=== PATIENT | female | born 2000 | race Caucasian/White ===

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

== ENCOUNTER 2021-12-03 19:18 | Inpatient (IN) | payer OTHER ==
[2021-12-03] MEDS ORDERED: Nalbuphine HCl 10 MG/ 1ML Amp IVPUSH PRN (19:29)
[2021-12-03] MEDS ORDERED: Famotidine 20 MG Tab PO PRN (19:29)
[2021-12-03] MEDS ORDERED: Oxytocin/Lactated Ringers 10 UNIT/1,000 ML BAG IV SCH ×2 (19:30)
[2021-12-03] MEDS: Misoprostol 25 MCG (1/4 of 100 MCG) Tab VAG SCH (20:12)
[2021-12-04] MEDS ORDERED: Bupivacaine 0.25% 10 ML SDV ONE
[2021-12-04] MEDS: Lactated Ringers 1,000 ML IV SCH ×3 (01:11→08:33)
[2021-12-04] MEDS: Misoprostol 25 MCG (1/4 of 100 MCG) Tab VAG SCH (01:21)
[2021-12-04] MEDS ORDERED: Bupivacaine/fentaNYL/NS 100 ML Bag EPIDUR PRN (06:17)
[2021-12-04] MEDS ORDERED: ePHEDrine 50 MG/ML SDV IVPUSH PRN (06:17)
[2021-12-04] MEDS ORDERED: fentaNYL 100 MCG/2 ML SDV EPIDUR PRN (06:17)
[2021-12-04] MEDS ORDERED: diphenhydrAMINE 50 MG/ML SDV IVPUSH PRN (06:17)
[2021-12-04] MEDS ORDERED: Witch Hazel Medicated Pads 40/Jar TOP PRN (15:30)
[2021-12-04] MEDS ORDERED: Docusate Sodium 100 MG Cap PO PRN (15:30)
[2021-12-04] MEDS ORDERED: Acetaminophen 325 MG Tab PO PRN (15:30)
[2021-12-04] MEDS ORDERED: Benzocaine/Menthol 20%-0.5% Spray 78 GM Cannister TOP PRN (15:30)
[2021-12-04] MEDS: Ibuprofen 600 MG Tab PO PRN (17:26)
[2021-12-05] MEDS: Ibuprofen 600 MG Tab PO PRN (04:35)
== END 2021-12-05 18:15 | disposition home or self-care (01) | DRG 807 ==
LOC: JD.OBCHECK 19:18 → JD.OB 19:19 → OBSVTOIN 12-04 13:59 → JD.OB 12-04 14:00
PROVIDERS: ADMIT Obstetrics & Gynecology; ATTEND Obstetrics & Gynecology
PROC: 10E0XZZ Delivery of Products of Conception, External Approach (ICD-10-PCS; principal; 2021-12-04)
PROC: 0KQM0ZZ Repair Perineum Muscle, Open Approach (ICD-10-PCS; 2021-12-04)
PROC: 10907ZC Drainage of Amniotic Fluid, Therapeutic from Products of Conception, Via Natural or Artificial Opening (ICD-10-PCS; 2021-12-04)
PROC: 0U7C7ZZ Dilation of Cervix, Via Natural or Artificial Opening (ICD-10-PCS; 2021-12-04)
PROC: 3E0P7VZ Introduction of Hormone into Female Reproductive, Via Natural or Artificial Opening (ICD-10-PCS; 2021-12-04)
PROC: 3E033VJ Introduction of Other Hormone into Peripheral Vein, Percutaneous Approach (ICD-10-PCS; 2021-12-04)
PROC: 3E0R3BZ Introduction of Anesthetic Agent into Spinal Canal, Percutaneous Approach (ICD-10-PCS; 2021-12-04)
PROC: 4A1HXCZ Monitoring of Products of Conception, Cardiac Rate, External Approach (ICD-10-PCS; 2021-12-04)
DX: O48.0 Post-term pregnancy (principal); Z37.0 Single live birth; Z3A.40 40 weeks gestation of pregnancy; O69.81X0 Labor and delivery complicated by cord around neck, without compression, not applicable or unspecified; O70.1 Second degree perineal laceration during delivery; O36.63X0 Maternal care for excessive fetal growth, third trimester, not applicable or unspecified
CPT/HCPCS: 36415; 51702; 59025; 59409; 85025; 86592; 86850; 86900; 86901; A9270-GY; J2590; J3010; J3490; J7120